=== PATIENT | male | born 1970 | race Caucasian/White ===

== ENCOUNTER 2017-04-14 17:42 | Emergency (ER) | payer MEDICARE, MEDICAID ==
[~2017-04-14] VITALS: Ht 172.7 cm; Wt 111.1 kg
[~2017-04-14 17:42] MED LIST: DIAZ2TAB PO; KETO10TA PO
[2017-04-14] MEDS ORDERED: CYCL5TAB PO (18:26)
[2017-04-14] MEDS ORDERED: NAPR500T PO (18:26)
--- NOTE | 2017-04-14 18:27 | ED Back Pain ---
General Chief Complaint: Back Problems Stated Complaint: PT FELL AND INJ BACK Nursing Triage Note: pt reports he slipped when running on a gravel parking lot and landed on his buttock. pt reports increasing r sided back pain from his r hip to his r shoulder. Nursing Sepsis Screen: No Definite Risk Source of Information: Patient Exam Limitations: No Limitations History of Present Illness Time Seen by Provider: 18:23 Initial Comments To ER with reports of back pain. He states that he was running through gravel parking lot 2 days ago when he slipped and fell landing directly on his tailbone. Since then he's had pain in his neck and he states that his neck "locks up" denies paresthesias in the arms. He reports pain down the right side of his upper mid and lower back. No midline low back pain. He does report some numbness in the right buttock and down the right leg intermittently. No loss of bowel or bladder control. Location: Paraspinous Muscles Timing/Duration: 1-2 Days Severity: Moderate Pain/Injury Location: Back Radiation: Buttocks, Upper Legs (on the right) Allergies and Home Medications Allergies Coded Allergies: No Known Drug Allergies (Unverified , 01/23/16) Home Medications No Active Prescriptions or Reported Meds Constitutional: see HPI EENTM: see HPI Respiratory: no symptoms reported Cardiovascular: no symptoms reported Genitourinary: no symptoms reported Musculoskeletal: see HPI, back pain Skin: no symptoms reported Psychiatric/Neurological: No Symptoms Reported Past [id number] Hx Patient Social History Alcohol Use: Rarely Uses Recreational Drug Use: No Smoking Status: Former Smoker Recent Foreign Travel: No Contact w/Someone Who Travel: No Recent Infectious Disease Expo: No Seasonal Allergies Seasonal Allergies: Yes Surgeries HX Surgeries: Yes (BACK SURGERY, STERNUM ? ; ? SUBDURAL HEMATOMA?/HEAD) Surgeries: Neurological, Orthopedic Respiratory Hx Respiratory Disorders: No Cardiovascular Hx Cardiac Disorders: Yes (CHEST WALL CONTUSION? / ?STERNAL SURGERY? ) Cardiac Disorders: Hypertension Neurological Hx Neurological Disorders: Yes (? SUBDURAL HEMATOMA? ) Neurological Disorders: Headaches /Migraines Reproductive System Hx Reproductive Disorders: No Sexually Transmitted Disease: No HIV/AIDS: No Genitourinary Hx Genitourinary Disorders: No Genitourinary Disorders: Kidney Stones Gastrointestinal Hx Gastrointestinal Disorders: No Musculoskeletal Hx Musculoskeletal Disorders: Yes (CHRONIC NECK AND BACK PAIN ) Musculoskeletal Disorders: Arthritis, Chronic Back Pain Endocrine Hx Endocrine Disorders: No HEENT HX ENT Disorders: No Loss of Vision: Denies Cancer Hx Cancer: No Psychosocial Hx Psychiatric Problems: Yes (ANGER ISSUES, ALCOHOL ABUSE HISTORY ) Behavioral Health Disorders: Anxiety Integumentary HX Skin/Integumentary Disorder: No Blood Transfusions Hx Blood Disorders: No Physical Exam Vital Signs Vital Sign - Last 12Hours 04/14/17 17:51 Temp 98.2 Pulse 83 Resp 16 B/P (MAP) 141/89 Pulse Ox 100 Capillary Refill : Less Than 3 Seconds General Appearance: No Apparent Distress, WD/WN HEENT: PERRL/EOMI, TMs Normal Respiratory: No Accessory Muscle Use, No Respiratory Distress Gastrointestinal: Non Tender, Soft Extremity: Normal Capillary Refill, Normal Inspection Neurologic/Psychiatric: Alert, Oriented x3, No Motor/Sensory Deficits Skin: Normal Color, Warm/Dry Progress/Results/Core Measures Results/Orders My Orders Orders - ROMAIN LIZ APRN Morphine Injection (Morphine Injection (04/14/17 18:30) Ketorolac Injection (Toradol Injection) (04/14/17 18:30) Ct Cervical Spine Wo (04/14/17 18:22) Ct Lumbar Spine Wo (04/14/17 18:22) Vital Signs/I&O Vital Sign - Last 12Hours 04/14/17 17:51 Temp 98.2 Pulse 83 Resp 16 B/P (MAP) 141/89 Pulse Ox 100 Blood Pressure Mean: 106 Departure Impression Impression: Primary Impression: Torticollis Additional Impression: Muscle strain Disposition: 01 HOME, SELF-CARE Condition: Stable Departure-Patient Inst. Decision time for Depature: 18:25 Referrals: NO,LOCAL PHYSICIAN (PCP/Family) Primary Care Physician Patient Instructions: Lumbar Muscle Strain (DC), Muscle Strain (DC) Add. Discharge Instructions: 1. Warm compresses to your neck and her back 2. Return to ER for any concerns 3. See your doctor within 2 days for recheck 3. Medication as directed All discharge instructions reviewed with patient and/ or family. Voiced understanding. Scripts Naproxen (Naprosyn) 500 Mg Tablet 500 MG PO BID Y for PAIN-MODERATE, #30 TAB Prov: ROMAIN LIZ APRN 04/14/17 Cyclobenzaprine HCl (Cyclobenzaprine HCl) 5 Mg Tablet 5 MG PO TID, #21 TAB Prov: ROMAIN LIZ APRN 04/14/17 ROMAIN LIZ APRN Apr 14, 2017 18:27
[2017-04-14] MEDS ORDERED: KETOROLAC 60 MG/2 ML VIAL IM ONE (18:30)
[2017-04-14] MEDS ORDERED: morphine INJ 10 MG/ML 1ML (SYR OR VIAL) IM ONE (18:30)
--- NOTE | 2017-04-14 19:07 | Diagnostic Imaging Report ---
PROCEDURE: CT cervical spine without contrast. TECHNIQUE: Multiple contiguous axial images were obtained through the cervical spine without the use of intravenous contrast. Sagittal and coronal reformations were then performed. INDICATION: Recent fall. Severe neck pain. COMPARISON: 01/23/2016 FINDINGS: Evaluation of the static alignment demonstrates straightening with slight reversal of normal lordotic curvature. Findings may be related to spasm and/or positioning. There is no significant anteroretrolisthesis. There is no evidence of jumped facets. Vertebral body heights are maintained. There is no evidence of acute fracture. No bony fragments are seen within the spinal canal. There are multilevel degenerative changes consisting of mild intervertebral disc height loss with anterior and posterior disc osteophyte complex formations, greatest at the C3-C4 and C4-C5 levels. There is also asymmetric facet arthropathy on the right at the C2-C3 and C3-C4 levels. Pre-and paravertebral soft tissue structures are unremarkable. Included portions of the lung apices are clear. IMPRESSION: 1. No CT evidence of acute fracture or dislocation of the cervical spine. 2. Multilevel degenerative changes greatest involving the upper cervical spine as described above. Dictated by: Dictated on workstation # [id number]
--- NOTE | 2017-04-14 19:15 | Diagnostic Imaging Report ---
PROCEDURE: CT lumbar spine without contrast. TECHNIQUE: Multiple contiguous axial images were obtained through the lumbar spine without the use of intravenous contrast. Sagittal and coronal reformations were then performed. INDICATION: Three days status post fall. Severe back pain. Difficulty walking FINDINGS: There is normal height and alignment of the lumbar vertebral bodies. Disc spaces are well-maintained. There is mild diffuse bulging of disc at L3-4 with no bony stenosis. There is mild bulging of the annulus at L4-5 with no focal disc herniation or bony stenosis. There is a broad-based disc protrusion at L5-S1. There is no bony stenosis. There is no fracture or other acute abnormality seen. IMPRESSION: There are bulging of the discs, as described. No fracture or other acute bony abnormality is seen. Dictated by: Dictated on workstation # [id number]
[2017-04-14 19:22] VITALS: BP 127/85
== END 2017-04-14 19:22 | disposition home or self-care (01) ==
LOC: EDUNIT# 17:42 → ER 17:44
DX: S39.012A Strain of muscle, fascia and tendon of lower back, initial encounter (principal); M43.6 Torticollis; I10 Essential (primary) hypertension; G43.909 Migraine, unspecified, not intractable, without status migrainosus; F41.9 Anxiety disorder, unspecified; M19.90 Unspecified osteoarthritis, unspecified site; Z87.442 Personal history of urinary calculi; Z87.891 Personal history of nicotine dependence; W01.0XXA Fall on same level from slipping, tripping and stumbling without subsequent striking against object, initial encounter
CPT/HCPCS: 72125; 72131; 96372; 99284